=== PATIENT | male | born 1965 | race Caucasian/White ===

== ENCOUNTER 2017-01-21 16:37 | Emergency (ER) | payer BC ==
[~2017-01-21] VITALS: Ht 188 cm; Wt 87.3 kg
[2017-01-21 19:00] LABS: ADD MIUA? YES; BILIRUBIN NEGATIVE; BLOOD MODERATE; COLOR YELLOW ((YELLOW)); GLUCOSE (STRIP) NEGATIVE; KETONES 5; LEUKOCYTES NEGATIVE; NITRITE NEGATIVE; PROTEIN (STRIP) NEGATIVE; SPECIFIC GRAVITY 1.027 (1.000-1.030)
[2017-01-21 19:14] LABS: BACTERIA NONE SEEN /HPF; CALCIUM OXALATE CRYSTALS 3+ /HPF; EPITHELIAL CELLS NONE SEEN /HPF; MUCUS TRACE /LPF; RED BLOOD CELLS 15-20 /HPF (0-5); UCUL ADDED? NO; WHITE BLOOD CELLS 0-5 /HPF (0-5)
[2017-01-21 19:49] LABS: HEMATOCRIT 43.5 % (38.0-50.0); MCH 28.5 PG (29.0-34.0); MCHC 34.3 G/DL (30.0-36.0); MCV 83.3 FL (86-99); MEAN PLAT.VOLUME 10.3 uM^3 (9.0-12.4); PLATELET COUNT 224 K/uL (156-360); RBC DIS.WIDTH-CV 12.9 % (11.8-14.6); RBC DIS.WIDTH-SD 38.9 % (39-53); RED BLOOD COUNT 5.22 M/uL (4.00-5.50); WHITE BLOOD COUNT 13.3 K/uL (4.1-10.2)
[2017-01-21 20:01] LABS: CHLORIDE 107 mEq/L (99-109); POTASSIUM 4.3 mEq/L (3.7-5.4); SODIUM 141 mEq/L (136-147)
[2017-01-21 20:03] LABS: GLUCOSE 97 mg/dL (70-99)
[2017-01-21 20:04] LABS: ANION GAP 9 MEQ/L (2-14)
[2017-01-21 20:05] LABS: TOTAL BILIRUBIN 0.5 mg/dL (0.0-1.0)
[2017-01-21 20:06] LABS: ALKALINE PHOSPHATASE 68 IU/L (3-129)
[2017-01-21 20:07] LABS: GFR ESTIMATE (CALCULATED) 38 mL/min/
[2017-01-21 20:08] LABS: UREA NITROGEN (BUN) 17 mg/dL (9-23)
[2017-01-21] MEDS ORDERED: MOTRIN800 MG PO (22:11)
[2017-01-21] MEDS ORDERED: FLOMAX0.4 MG PO (22:11)
[2017-01-21] MEDS ORDERED: FLEXERIL10 MG PO (22:11)
[2017-01-21] MEDS ORDERED: MOTRIN600 MG PO (22:13)
[2017-01-21 22:36] VITALS: BP 135/79
== END 2017-01-21 22:38 | disposition home or self-care (01) ==
LOC: EXP 16:37 → EME 16:37 → EXP 22:38
DX: N20.0 Calculus of kidney (principal); Z87.442 Personal history of urinary calculi; Z88.6 Allergy status to analgesic agent
CPT/HCPCS: 74176; 80053; 81003; 85027; 99281; 99284; J1885; J7030